=== PATIENT | female | born 1930 | race Caucasian/White ===

== ENCOUNTER 2018-05-06 22:27 | Inpatient (IN) | payer MEDICARE, BC ==
[~2018-05-06] VITALS: Ht 154.9 cm; Wt 64.0 kg
[~2018-05-06 22:27] MED LIST: ASPI-807 PO
[2018-05-06] MEDS ORDERED: ONDANSETRON HCL/PF 4 MG/2 ML VIAL ONE (22:46)
--- NOTE | 2018-05-06 22:54 | NUR ---
PT BIB RA WITH A C/O SYNCOPE AT HOME. PT'S FOUND THE PT ON THE FLOOR OF THE BATHROOM. PT STATED THAT SHE DRANK SOME WINE TONIGHT. PT HAS A BRUISE AND EDEMA ON RT HAND AND BRUISES LUE.
[2018-05-06] MEDS ORDERED: ONDANSETRON HCL/PF 4 MG/2 ML VIAL IVP ONE (23:00)
[2018-05-06] MEDS ORDERED: IV NS 0.9% 1,000 ML BAG IV ONE (23:00)
[2018-05-06 23:07] LABS: BASOPHILS % (AUTO) 0.6 % (0.0-2.0); EOSINOPHILS % (AUTO) 1.9 % (0.0-6.0); HEMATOCRIT 35 % (33-45); HEMOGLOBIN 11.9 g/dL (11.5-14.8); LYMPHOCYTES # (AUTO) 0.9 /CMM (0.8-4.8); LYMPHOCYTES % (AUTO) 21.9 % (20.0-44.0); MEAN CORPUSCULAR HEMOGLOBIN 34 PG (26.0-33.0); MEAN CORPUSCULAR HGB CONC 34 g/dl (31.0-36.0); MEAN CORPUSCULAR VOLUME 100 fL (82-100); MONOCYTES # (AUTO) 0.4 /CMM (0.1-1.30); MONOCYTES % (AUTO) 9.7 % (2.0-12.0); NEUTROPHILS # (AUTO) 2.8 /CMM (1.8-8.9); NEUTROPHILS % (AUTO) 65.9 % (43.0-81.0); PLATELET COUNT (AUTO) 107 /CMM (150-450); RDW COEFFICIENT OF VARIATION 15.1 (11.5-15.0); RED BLOOD CELL COUNT(AUTO) 3.46 MIL/uL (4.0-5.2); WHITE BLOOD COUNT (AUTO) 4.2 K/uL (4.3-11.0)
--- NOTE | 2018-05-06 23:20 | NUR ---
FAMILY IS AT THE BEDSIDE.
[2018-05-06 23:24] LABS: INR 0.94 (0.87-1.13)
[2018-05-06 23:30] LABS: TROPONIN I < 0.017 ng/mL (0.00-0.056)
[2018-05-06 23:36] LABS: CALCIUM, SERUM 8.7 mg/dL (8.5-10.1); CARBON DIOXIDE 26 mmol/L (21-32); CHLORIDE 102 mmol/L (98-107); CREATININE 0.8 mg/dL (0.6-1.3); GLUCOSE 116 mg/dL (74-106); POTASSIUM 3.5 mmol/L (3.5-5.1); SODIUM SERUM 140 mmol/L (136-145); UREA NITROGEN, BLOOD 13 mg/dL (7-18)
[2018-05-06 23:43] LABS: ALANINE AMINOTRANSFERASE 16 U/L (12-78); ALBUMIN 3.3 g/dL (3.4-5.0); ALKALINE PHOSPHATASE 66 U/L (46-116); ASPARTATE AMINOTRANSFERASE 23 U/L (15-37); BILIRUBIN,DIRECT 0.2 mg/dL (0.0-0.2); BILIRUBIN,TOTAL 0.9 mg/dL (0.2-1.0); TOTAL PROTEIN, SERUM 6.9 g/dL (6.4-8.2)
--- NOTE | 2018-05-07 00:27 | NUR ---
PT AMBULATED TO THE BATHROOM WITHOUT ASSISTANCE
--- NOTE | 2018-05-07 00:32 | NUR ---
REPORT GIVEN TO GENEVA CASTANEDA
[2018-05-07] MEDS ORDERED: ONDANSETRON HCL/PF 4 MG/2 ML VIAL IVP PRN (01:00)
[2018-05-07] MEDS ORDERED: MAGNESIUM HYDROXIDE 30 ML UDC PO PRN (01:00)
[2018-05-07] MEDS ORDERED: Z GUARD REMEDY 2 OZ OINT TP PRN (01:00)
[2018-05-07] MEDS ORDERED: ACETAMINOPHEN 325 MG TABLET PO PRN (01:00)
--- NOTE | 2018-05-07 01:15 | NUR ---
MIDDLEWARE CONSULTANTSTONE DECORATOR NOTES 87yo, female patient received from ER via gurney under the care of Vern Galo. Reported received from GENEVA Gilbert. Alert and oriented x4, verbally responsive. Denies chest pain. Denies any type of pain. On oxygen therapy @1LPM via nasal cannula with no labored breathing noted. No SOB noted or reported. Skin body assessment done. Belongings checklist done by DESIGNER/WRITER. Medical history provided by patient. Provider aware of patient being transferred to Tele-3W. TELE monitor shows SR w bundle block; HR 73FLU and PNA are upto date. FULL CODE. [facility] 05/06/2018. Patient ambulatory with minimal assist; steady gait. Patient stated that she had 3 glasses of wine last night because she wasn't feeling good d/t shingles vaccine that she received 2 days ago. patient unable to state what happened after she had the 3rd drink. , [place] [phone], brought patient in to the ER, according to patient. IV on left wrist #20g; patent and intact. Offered assistance needed. Safety measures in place. Bed in lowest position, locked with call light within reach. Reinforced to use call light with any assistance needed. Will continue to monitor and assist patient
[2018-05-07] MEDS ORDERED: SIMV10TA6 PO (01:38)
[2018-05-07] MEDS ORDERED: LEVO50TA8 PO (01:38)
--- NOTE | 2018-05-07 01:45 | NUR ---
PRESCHOOL SPECIAL EDUCATION TEACHER - CRITICAL LAB RESULT Lactic Acid of 3.2 reported to DHIRAJ Galo. Provider will see the patient soon
[2018-05-07] MEDS: IV NS 0.9% 1,000 ML IV PRN ×5 (01:55→18:32)
--- NOTE | 2018-05-07 01:55 | NUR ---
TUBE FILLER NOTES Provider with patient at bedside
[2018-05-07 04:00] VITALS: BP 108/45
--- NOTE | 2018-05-07 04:40 | NUR ---
MS RN NOTES Patient continues to complain of severe abdominal pain despite pain management (Dilaudid given @1946am). Patient requesting for abdominal test. NET SOLUTIONS ARCHITECT made aware. Awaiting for orders.
[2018-05-07 05:15] VITALS: BP_SYST 105; BP_SYST 108; BP_SYST 91; BP_DIAS 45; BP_DIAS 52
[2018-05-07 06:22] LABS: BASOPHILS % (AUTO) 0.4 % (0.0-2.0); EOSINOPHILS % (AUTO) 0.5 % (0.0-6.0); HEMATOCRIT 33 % (33-45); HEMOGLOBIN 11.4 g/dL (11.5-14.8); LYMPHOCYTES % (AUTO) 25.9 % (20.0-44.0); MEAN CORPUSCULAR HEMOGLOBIN 35 PG (26.0-33.0); MEAN CORPUSCULAR HGB CONC 34 g/dl (31.0-36.0); MEAN CORPUSCULAR VOLUME 101 fL (82-100); MONOCYTES # (AUTO) 0.3 /CMM (0.1-1.30); MONOCYTES % (AUTO) 8.3 % (2.0-12.0); NEUTROPHILS # (AUTO) 2.4 /CMM (1.8-8.9); NEUTROPHILS % (AUTO) 64.9 % (43.0-81.0); PLATELET COUNT (AUTO) 101 /CMM (150-450); RDW COEFFICIENT OF VARIATION 15.1 (11.5-15.0); WHITE BLOOD COUNT (AUTO) 3.8 K/uL (4.3-11.0)
[2018-05-07 06:38] LABS: CARBON DIOXIDE 24 mmol/L (21-32); CHLORIDE 110 mmol/L (98-107); CREATININE 0.7 mg/dL (0.6-1.3); GLUCOSE 97 mg/dL (74-106); PHOSPHORUS 3.7 mg/dL (2.5-4.9); POTASSIUM 4.2 mmol/L (3.5-5.1); SODIUM SERUM 144 mmol/L (136-145); UREA NITROGEN, BLOOD 10 mg/dL (7-18)
[2018-05-07 06:50] LABS: CHOLESTEROL 128 mg/dL (<200); HDL CHOLESTEROL 54 mg/dL (40-60); LDL 62 mg/dL (0-99); TRIGLYCERIDES 112 mg/dL (30-150)
[2018-05-07 07:07] LABS: APPEARANCE,URINE CLEAR (CLEAR); BILIRUBIN,URINE NEGATIVE (NEGATIVE); BLOOD, URINE 1+ Ery/uL (NEGATIVE); COLOR,URINE YELLOW (YELLOW); KETONES,URINE NEGATIVE (NEGATIVE); LEUKOCYTE ESTERASE ,URINE NEGATIVE (NEGATIVE); NITRITE, URINE NEGATIVE (NEGATIVE); PROTEIN,URINE NEGATIVE (NEGATIVE); UGLUCOSE NEGATIVE (NEGATIVE); UROBILINOGEN,URINE 0.2 EU/dL (0.2)
--- NOTE | 2018-05-07 07:15 | NUR ---
SALES REPRESENTATIVE SUPERVISOR INITIAL NOTES Received patient A/O x4, no complaints of discomfort, no SOB/respiratory distress noted. On O2 inhalation via NC @ 1-2LPM. With NS @ 75ml/hr attached to IV cannula @ L wrist G#20. Kept clean, dry and comfortable. Will monitor accordingly.
--- NOTE | 2018-05-07 07:35 | NUR ---
GLUE WHEEL OPERATOR CLOSING NOTES Patient remained in bed, resting comfortably, easily aroused Not in any type of distress. On oxygen therapy @1LPM via nasal cannula with no SOB noted. Denies any pain. No changes in LOC since admission. IV on left wrist #20g: patent and intact with NS @75ml/hr running, tolerating well. Safety measures in place. Bed in lowest position with call light within reach. Reinforced to use call light for any assistance including going to the bathroom. Endorsed to oncoming shift nurse
[2018-05-07 07:36] LABS: BACTERIA,URINE None seen /HPF (None Seen); SQUAMOUS EPITHELIAL CELL,UR Few /HPF (None Seen); WBC,URINE NONE SEEN /HPF (0-3)
[2018-05-07 07:52] LABS: IRON, SERUM 43 ug/dl (50-175); TOTAL IRON BINDING CAPACITY 246 ug/dl (250-450)
[2018-05-07 07:57] LABS: TROPONIN I < 0.017 ng/mL (0.00-0.056)
[2018-05-07] MEDS: LEVOTHYROXINE SODIUM 50 MCG TABLET PO SCH ×2 (07:57→08:33)
[2018-05-07 08:00] VITALS: BP 118/67
[2018-05-07 08:01] VITALS: BP_SYST 116; BP_SYST 118; BP_SYST 125; BP_DIAS 54; BP_DIAS 62; BP_DIAS 67
[2018-05-07 08:07] LABS: MAGNESIUM 1.8 mg/dL (1.8-2.4)
[2018-05-07 08:08] LABS: FERRITIN 132 ng/mL (8-388); THYROID STIMULATING HORMONE 0.524 uIU/mL (0.358-3.74)
[2018-05-07] MEDS: ASPIRIN 81 MG TAB.CHEW PO SCH (08:33)
--- NOTE | 2018-05-07 09:00 | NUR ---
VIROLOGIST NOTES D/C tele as ordered. Increased IVF NS to 200ml/hr as ordered. Patient tolerated the procedure well. No unusualities noted at this time.
[2018-05-07 16:00] VITALS: BP 128/68
[2018-05-07] MEDS ORDERED: SIMVASTATIN 10 MG TABLET PO SCH (18:00)
[2018-05-07] MEDS ORDERED: IV NS 0.9% 1,000 ML BAG IV PRN (18:00)
--- NOTE | 2018-05-07 18:45 | NUR ---
TRADE SPECIALIST CLOSING NOTES Patient asleep on bed with SL IV line G#20. No complaints of any discomfort, respiration even and unlabored. 2L NS infusion done. Now on IV NS @75ml/hr. All needs attended, ensured safety at all times. All concerns attended promptly, kept call light within easy reach. Patient able to ambulate independently to toilet. Afebrile the whole shift, no new complaints made. Endorsed to the next shift.
--- NOTE | 2018-05-07 19:00 | NUR ---
MS RN OPENING NOTE Patient was seen ambulating to the bathroom with steady gait; patient is AAOx4, breathing on RA with no SOB, and no signs of acute distress. Patient was reconnected to IV fluids, NS at 75ml/hr through the left wrist IV with no signs of leaking or infiltration. Patient was made comfortable in bed; bed is low/locked, two side rails up, and call carranza within reach. Patient has no immediate needs at this time. Will continue to monitor.
[2018-05-07 20:00] VITALS: BP 112/53
--- NOTE | 2018-05-07 23:00 | NUR ---
MS RN NOTE - New IV Patient reported pain at IV site (left wrist). Upon observation, site appeared pink and slightly edematous. IV fluids were paused and IV was removed. New IV inserted successfully in the left forearm (22g). New IV had positive blood return, was flushed, and remains patent. IV fluids restarted - NS at 75ml/hr. Patient reports no pain or discomfort.
[2018-05-08 06:00] VITALS: BP_SYST 106; BP_SYST 119; BP_SYST 126; BP_DIAS 56; BP_DIAS 57; BP_DIAS 59
[2018-05-08 06:46] LABS: CALCIUM, SERUM 8.4 mg/dL (8.5-10.1); CARBON DIOXIDE 23 mmol/L (21-32); CHLORIDE 111 mmol/L (98-107); CREATININE 0.6 mg/dL (0.6-1.3); GLUCOSE 94 mg/dL (74-106); MAGNESIUM 1.8 mg/dL (1.8-2.4); PHOSPHORUS 2.7 mg/dL (2.5-4.9); POTASSIUM 4.5 mmol/L (3.5-5.1); SODIUM SERUM 140 mmol/L (136-145); UREA NITROGEN, BLOOD 12 mg/dL (7-18)
--- NOTE | 2018-05-08 07:07 | NUR ---
MS RN CLOSING NOTE Patient is AAOx4, breathing on RA with no SOB, and no signs of acute distress. Patient slept intermittently overnight but had no complications and remains in stable condition. NS at 75ml/hr is running through the left FA IV with no signs of leaking or infiltration. Bed is low/locked, two side rails up, and call carranza within reach. All patient needs have been addressed this shift. Patient care endorsed to day shift nurse.
[2018-05-08 08:00] VITALS: BP 122/50
--- NOTE | 2018-05-08 08:15 | NUR ---
RN OPENING NOTES RECEIVED PT. IN BED AWAKE, A&OX4. BREATHING UNLABORED, AND EVENLY ON ROOM AIR. NO S/S OF ACUTE DISTRESS. IV FLUIDS RUNNING AT 75 ML/HR. BED IS IN LOWEST, AND LOCKED POSITION. 2 SIDE RAILS UP, AND INSTRUCTED PT. TO USE CALL LIGHT FOR ASSISTANCE.
[2018-05-08 08:46] LABS: BASOPHILS % (AUTO) 0.7 % (0.0-2.0); EOSINOPHILS % (AUTO) 2.8 % (0.0-6.0); HEMATOCRIT 33 % (33-45); LYMPHOCYTES % (AUTO) 25.8 % (20.0-44.0); MEAN CORPUSCULAR HEMOGLOBIN 34 PG (26.0-33.0); MEAN CORPUSCULAR HGB CONC 34 g/dl (31.0-36.0); MEAN CORPUSCULAR VOLUME 101 fL (82-100); MONOCYTES # (AUTO) 0.3 /CMM (0.1-1.30); MONOCYTES % (AUTO) 8.6 % (2.0-12.0); NEUTROPHILS # (AUTO) 2.4 /CMM (1.8-8.9); NEUTROPHILS % (AUTO) 62.1 % (43.0-81.0); PLATELET COUNT (AUTO) 104 /CMM (150-450); RDW COEFFICIENT OF VARIATION 15.7 (11.5-15.0); RED BLOOD CELL COUNT(AUTO) 3.23 MIL/uL (4.0-5.2); WHITE BLOOD COUNT (AUTO) 3.9 K/uL (4.3-11.0)
[2018-05-08] MEDS: ASPIRIN 81 MG TAB.CHEW PO SCH (08:52)
[2018-05-08] MEDS: IV NS 0.9% 1,000 ML IV PRN (08:53)
--- NOTE | 2018-05-08 14:39 | NUR ---
BRIDGE BUILDER PT. WAS DISCHARGED IN STABLE CONDITION. PT.'S IS LEAVING ALONG SIDE PT. IN A TAXI. DISCHARGE INSTRUCTIONS WERE PROVIDED WITH EDUCATION, AND PT. VERBALIZED UNDERSTANDING. DISCHARGE PAPERS WERE SIGNED, AND PT. TOOK PACKET. ID BAND, AND IV WAS REMOVED WITHOUT COMPLICATIONS. BELONGINGS LIST WAS CHECKED, AND SIGNED. MEDICATION LIST WAS REVIEWED WITH PT. ALL QUESTIONS ANSWERED. PT. RECEIVED A TAXI VOUCHER TO DESTINATION [address] [place] [address].
== END 2018-05-08 14:30 | disposition home or self-care (01) | DRG 897 ==
LOC: ER 22:29 → TELE 23:54 → MED 05-07 10:20
PROVIDERS: ADMIT Nurse Practitioner Acute Care; ATTEND Nurse Practitioner Acute Care
DX: F10.129 Alcohol abuse with intoxication, unspecified (principal); D61.818 Other pancytopenia; E44.0 Moderate protein-calorie malnutrition; E87.2 Acidosis; E03.9 Hypothyroidism, unspecified; E78.5 Hyperlipidemia, unspecified; E86.0 Dehydration; E88.09 Other disorders of plasma-protein metabolism, not elsewhere classified; E86.9 Volume depletion, unspecified; I34.0 Nonrheumatic mitral (valve) insufficiency; I36.1 Nonrheumatic tricuspid (valve) insufficiency; D75.89 Other specified diseases of blood and blood-forming organs; Z68.26 Body mass index [BMI] 26.0-26.9, adult; Z85.038 Personal history of other malignant neoplasm of large intestine; Y90.7 Blood alcohol level of 200-239 mg/100 ml
CPT/HCPCS: 36415; 70450-TC; 71045-TC; 80048-TC; 80061-TC; 80076-TC; 81000-TC; 82306; 82728-TC; 82962-TC; 83540-TC; 83605-TC; 83735-TC; 84100-TC; 84439-TC; 84443-TC; 84484-TC; 85025-TC; 85730-TC; 87040-TC; 87081-TC; 93307-TC; 93880-TC; A4606; G0480; J2405; J7030; Z7610